=== PATIENT | female | born 1985 | race African-American/Black ===

== ENCOUNTER 2017-07-16 12:32 | Emergency (ER) | payer BC, SELFPAY ==
--- NOTE | 2017-07-16 14:11 | RAD ---
LEFT KNEE FOUR VIEWS: History: Left knee pain. FINDINGS/IMPRESSION: Mild degenerative changes are present. No fracture or dislocation or bony destruction identified. POS: [facility]
== END 2017-07-16 14:19 | disposition home or self-care (01) ==
LOC: ERS 12:32
DX: S83.92XA Sprain of unspecified site of left knee, initial encounter (principal); E11.9 Type 2 diabetes mellitus without complications; I10 Essential (primary) hypertension; X50.9XXA Other and unspecified overexertion or strenuous movements or postures, initial encounter; Y92.69 Other specified industrial and construction area as the place of occurrence of the external cause